=== PATIENT | male | born 1940 | race Caucasian/White ===

== ENCOUNTER → 2024-04-27 10:35 | Outpatient (REF) | payer OTHER, SELFPAY | LOC: RCS 10:35 | PROVIDERS: ATTENDING PHYSICIAN Thoracic Surgery (Cardiothoracic Vascular Surgery); FAMILY PHYSICIAN Family Medicine | DX: Z95.1 Presence of aortocoronary bypass graft (principal); Z98.890 Other specified postprocedural states | CPT/HCPCS: 93306 ==